=== PATIENT | female | born 1940 | race Caucasian/White ===

== ENCOUNTER 2016-11-28 14:21 | Emergency (ER) | payer OTHER, MEDICARE ==
[2016-11-28] MEDS ORDERED: NS 1,000 ML IV ONE (15:08)
[2016-11-28] MEDS ORDERED: ASPIRIN 81 MG CHEWABLE TAB PO ONE (15:14)
--- NOTE | 2016-11-28 15:18 | EDPHY ---
H & P Time Seen by Provider: 11/28/16 15:01 HPI/ROS: CHIEF COMPLAINT: Chest pain HISTORY OF PRESENT ILLNESS: The patient is a 76-year-old female who presents to the emergency department with episodes of chest pain. Her 1st episode started at 5:30 a.m. yesterday. It awoke her from sleep. She describes a substernal chest pressure and heaviness. Her symptoms resolved after about an hour. She then had fatigued all day. She again woke up around 530 this morning. She thinks she again had heaviness but it quickly resolved. She was worried that she had a "digestive" problem but states she did eat much yesterday. She had no further episodes of chest pain today. No nausea or vomiting. No shortness of breath. No diaphoresis. No leg pain or swelling. No recent travel. The patient is followed by Dr. Quezada. She had a stress test last year that she reports is normal. Her last catheterization was when she was 64. REVIEW OF SYSTEMS: My complete review of systems is negative except as mentioned in the HPI. Past Medical/Surgical History: Includes coronary artery disease, hypertension, high cholesterol Past surgical history: Includes bladder suspension Social history: The patient does not smoke tobacco. She occasionally uses marijuana. Smoking Status: Former smoker Physical Exam: Vitals noted. GENERAL: Well-appearing, in no acute distress, alert. HEENT: Eyes normal to inspection, normal pharynx, no signs of dehydration. NECK: No thyromegaly, no lymphadenopathy, supple. RESPIRATORY: Clear to auscultation bilaterally, no rales, rhonchi or wheezing. CVS: Regular rate and rhythm, no rubs, murmurs, or gallops. ABDOMEN: Soft, nontender, nondistended, no organomegaly. BACK: Normal to inspection, no CVA tenderness. SKIN: Normal color, no rash, warm, dry. No pallor. EXTREMITIES: No pedal edema, no calf tenderness, no Homans sign or cords, no joint swelling. NEURO/PSYCH: Alert and oriented x3, normal mood and affect, normal motor sensory exam. Constitutional: Initial Vital Signs Temperature (C) 36.9 C 11/28/16 14:42 Heart Rate 58 L 11/28/16 14:42 Respiratory Rate 14 11/28/16 14:42 Blood Pressure 137/73 H 11/28/16 14:42 O2 Sat (%) 94 11/28/16 14:42 O2 Delivery Mode Room Air Allergies/Adverse Reactions: No Known Allergies Allergy (Unverified 11/28/16 14:41) Medical Decision Making - Diagnostics Imaging Results: Imaging Impressions Chest X-Ray 11/28/16 15:15 Impression: Hyperinflation and mild central bronchitis, without pneumonia.. Chest x-ray: Mild bronchitis with no pneumonia. Please refer the dictated report. ED Course/Re-evaluation: In the emergency department I discussed possible etiologies with the patient. I answered all her questions. Laboratory studies, EKG and chest x-ray were ordered. Patient was given aspirin 324 mg orally. EKG shows normal sinus rhythm, normal rate, normal axis, normal intervals. There are no ST or T-wave abnormalities. EKG is normal as interpreted by me. This is unchanged from her previous EKG in October 2005 I rechecked the patient on numerous occasions. She was stable throughout her stay. She had no chest pain while here. Patient's CBC, chemistry and troponin were normal. I discussed the case with Dr. Kapil Pettit from Cardiology. He will arrange outpatient follow-up. 17 20: I discussed the results with the patient. I answered her questions. She is given warnings prior to leaving. Differential Diagnosis: My differential includes but is not limited to ACS, acute DC, reflux, peptic ulcer disease, hiatal hernia, stress, dissection, aneurysm, PE, pneumonia, bronchitis - Data Points Laboratory Results: Laboratory Results 11/28/16 15:00 11/28/16 15:00 11/28/16 11/28/16 11/28/16 15:00 15:00 15:00 WBC 5.98 10^3/uL 10^3/uL (3.80-9.50) RBC 4.47 10^6/uL 10^6/uL (4.18-5.33) Hgb 13.2 g/dL g/dL (12.6-16.3) Hct 39.6 % % (38.0-47.0) MCV 88.6 fL fL (81.5-99.8) MCH 29.5 pg pg (27.9-34.1) MCHC 33.3 g/dL g/dL (32.4-36.7) RDW 14.2 % % (11.5-15.2) Plt Count 227 10^3/uL 10^3/uL (150-400) MPV 9.1 fL fL (8.7-11.7) Neut % (Auto) 54.0 % % (39.3-74.2) Lymph % (Auto) 33.9 % % (15.0-45.0) Irwin % (Auto) 7.7 % % (4.5-13.0) Eos % (Auto) 3.3 % % (0.6-7.6) Baso % (Auto) 0.8 % % (0.3-1.7) Nucleat RBC Rel Count 0.0 % % (0.0-0.2) Absolute Neuts (auto) 3.22 10^3/uL 10^3/uL (1.70-6.50) Absolute Lymphs (auto) 2.03 10^3/uL 10^3/uL (1.00-3.00) Absolute Monos (auto) 0.46 10^3/uL 10^3/uL (0.30-0.80) Absolute Eos (auto) 0.20 10^3/uL 10^3/uL (0.03-0.40) Absolute Basos (auto) 0.05 10^3/uL 10^3/uL (0.02-0.10) Absolute Nucleated RBC 0.00 10^3/uL 10^3/uL (0-0.01) Immature Gran % 0.3 % % (0.0-1.1) Immature Gran # 0.02 10^3/uL 10^3/uL (0.00-0.10) D-Dimer < 0.27 ug/mLFEU ug/mLFEU (0.00-0.50) Sodium 137 mEq/L mEq/L (134-144) Potassium 4.3 mEq/L mEq/L (3.5-5.2) Chloride 104 mEq/L mEq/L (97-110) Carbon Dioxide 23 mEq/l mEq/l (22-31) Anion Gap 10 mEq/L mEq/L (8-16) BUN 15 mg/dL mg/dL (7-23) Creatinine 0.6 mg/dL mg/dL (0.6-1.0) Estimated GFR > 60 Glucose 93 mg/dL mg/dL (70-100) Calcium 9.4 mg/dL mg/dL (8.5-10.4) Total Bilirubin 0.6 mg/dL mg/dL (0.1-1.4) Conjugated Bilirubin 0.3 mg/dL mg/dL (0.0-0.5) Unconjugated Bilirubin 0.3 mg/dL mg/dL (0.0-1.1) AST 24 IU/L IU/L (14-46) ALT 26 IU/L IU/L (9-52) Alkaline Phosphatase 74 IU/L IU/L (38-126) Troponin I < 0.012 ng/mL ng/mL (0-0.034) Total Protein 6.5 g/dL g/dL (6.3-8.2) Albumin 4.2 g/dL g/dL (3.5-5.0) Lipase 223.0 IU/L IU/L (23-300) Medications Given: Discontinued Medications Aspirin (Aspirin) 324 mg PO EDNOW ONE Stop: 11/28/16 15:15 Last Admin: 11/28/16 15:16 Dose: 324 mg Sodium Chloride (Ns) 1,000 mls @ 0 mls/hr IV ONCE ONE PRN Reason: Wide Open Stop: 11/28/16 15:09 Last Admin: 11/28/16 15:14 Dose: 1,000 mls Departure - Departure Disposition: Home, Routine, Self-Care Clinical Impression: Chest pain Qualifiers: Chest pain type: other chest pain Qualified Code(s): R07.89 - Other chest pain Condition: Good Instructions: Chest Pain (ED) Additional Instructions: Return with increasing chest pain, shortness of breath, leg pain, swelling, or any other concerns. You need close follow-up with your primary care physician. I discussed your case with the veterinary meat inspector. You should call their office to arrange an outpatient stress test. Referrals: Bri Mi MD [Primary Care Provider] - 1-2 days without fail Iván Quezada MD [Medical Doctor] - 2-3 days, call for appt.
[2016-11-28 15:23] LABS: % IMMATURE GRANULYOCYTES 0.3 % (0.0-1.1); ABSOLUTE IMMATURE GRANULOCYTES 0.02 10^3/uL (0.00-0.10); ADD DIFF? NO; ADD MORPH? NO; ADD SCAN? NO; ATYPICAL LYMPHOCYTE FLAG 20 (0-99); FRAGMENT RBC FLAG 0 (0-99); HEMATOCRIT 39.6 % (38.0-47.0); HEMOGLOBIN 13.2 g/dL (12.6-16.3); LEFT SHIFT FLG 0 (0-99); LIPEMIA HEMOLYSIS FLAG 80 (0-99); MEAN CELL HEMOGLOBIN 29.5 pg (27.9-34.1); MEAN CELL HEMOGLOBIN CONCENTR. 33.3 g/dL (32.4-36.7); MEAN CELL VOLUME 88.6 fL (81.5-99.8); MEAN PLATELET VOLUME 9.1 fL (8.7-11.7); PLATELET CLUMPS FLAG 10 (0-99); PLATELET COUNT 227 10^3/uL (150-400); RED BLOOD CELL COUNT 4.47 10^6/uL (4.18-5.33); RED CELL DISTRIBUTION WIDTH 14.2 % (11.5-15.2)
[2016-11-28 15:40] LABS: ALANINE AMINOTRANSFERASE 26 IU/L (9-52); ALBUMIN 4.2 g/dL (3.5-5.0); ALKALINE PHOSPHATASE 74 IU/L (38-126); ANION GAP 10 mEq/L (8-16); ASPARTATE AMINOTRANSFERASE 24 IU/L (14-46); BILIRUBIN,TOTAL 0.6 mg/dL (0.1-1.4); BILIRUBIN-CONJUGATED 0.3 mg/dL (0.0-0.5); BILIRUBIN-UNCONJUGATED 0.3 mg/dL (0.0-1.1); CALCIUM 9.4 mg/dL (8.5-10.4); CARBON DIOXIDE 23 mEq/l (22-31); CHLORIDE 104 mEq/L (97-110); CREATININE 0.6 mg/dL (0.6-1.0); GLOMERULAR FILTRATION RATE > 60; GLUCOSE 93 mg/dL (70-100); POTASSIUM 4.3 mEq/L (3.5-5.2); SODIUM 137 mEq/L (134-144); TOTAL PROTEIN 6.5 g/dL (6.3-8.2)
[2016-11-28 15:51] LABS: TROPONIN I < 0.012 ng/mL (0-0.034)
--- NOTE | 2016-11-28 16:08 | CPEKG ---
Heart Rate: 62 RR Interval: 968 P-R Interval: 172 QRSD Interval: 84 QT Interval: 408 QTC Interval: 415 P Southold: 55 QRS Southold: 54 T Wave Southold: 54 EKG Severity - OTHERWISE NORMAL ECG - EKG Impression: SINUS RHYTHM EKG Impression: LOW VOLTAGE IN FRONTAL LEADS Electronically Signed By: Kandace Hernandez 28-Nov-2016 22:46:27
[2016-11-28 17:42] VITALS: BP 103/74; PULSE 57; RESP 14; TEMP 98.2; O2SAT 98
== END 2016-11-28 17:40 | disposition home or self-care (01) ==
DX: R07.89 Other chest pain (principal); I10 Essential (primary) hypertension; I25.10 Atherosclerotic heart disease of native coronary artery without angina pectoris; Z87.891 Personal history of nicotine dependence

== ENCOUNTER → 2016-12-14 | Outpatient (CLI) | payer OTHER, MEDICARE | LOC: BHFA 09:00 | PROVIDERS: ATTEND Internal Medicine Cardiovascular Disease | DX: I25.10 Atherosclerotic heart disease of native coronary artery without angina pectoris (principal) | CPT/HCPCS: 78452; 93017; A9500 ==

== ENCOUNTER → 2017-06-05 | Outpatient (CLI) | payer OTHER, MEDICARE | LOC: BMCIMAGING 12:50 | PROVIDERS: ATTEND Urology | DX: N39.41 Urge incontinence (principal); D25.9 Leiomyoma of uterus, unspecified ==

== ENCOUNTER → 2018-03-07 | Outpatient (CLI) | payer OTHER, MEDICARE | LOC: FIMAGING 15:00 | DX: Z12.31 Encounter for screening mammogram for malignant neoplasm of breast (principal) ==

== ENCOUNTER → 2018-08-17 | Outpatient (CLI) | payer OTHER, MEDICARE | LOC: BHFA 11:15 | PROVIDERS: ATTEND Nurse Practitioner Adult Health | DX: E78.5 Hyperlipidemia, unspecified (principal); Z95.5 Presence of coronary angioplasty implant and graft ==

== ENCOUNTER → 2018-11-07 | Outpatient (CLI) | payer OTHER, MEDICARE | LOC: FIMAGING 07:23 | PROVIDERS: ATTEND Radiology Diagnostic Radiology | DX: I83.811 Varicose veins of right lower extremity with pain (principal) ==